=== PATIENT | male | born 1945 | race Caucasian/White ===

== ENCOUNTER 2021-04-02 17:13 | Inpatient (IN) | payer MEDICARE, OTHER ==
[~2021-04-02] VITALS: Ht 172.7 cm; Wt 71.5 kg
[2021-04-02] MEDS ORDERED: CALCIUM GLUCONATE 0.465 MEQ/ML 10 ML VIAL IVP ONE (17:30)
[2021-04-02 17:37] LABS: BASOPHILS % (AUTO) 0.8 % (0.0-2.0); HEMATOCRIT 28.4 % (41-53); HEMOGLOBIN 9.8 g/dL (13.5-17.5); LYMPHOCYTES # (AUTO) 1.5 K/uL (1.0-4.8); LYMPHOCYTES % (AUTO) 17.8 % (22.0-44.0); MEAN CORPUSCULAR HEMOGLOBIN 33.5 pg (26.0-34.0); MEAN CORPUSCULAR HGB CONC 34.4 G/dL (31.0-37.0); MEAN CORPUSCULAR VOLUME 98 fL (80-100); MONOCYTES # (AUTO) 0.6 K/uL (0.1-1.0); NEUTROPHILS # (AUTO) 5.3 K/uL (1.8-7.7); NEUTROPHILS % (AUTO) 65.4 % (40.0-70.0); PLATELET COUNT (AUTO) 274 K/uL (150-450); RED BLOOD CELL COUNT(AUTO) 2.91 MIL/uL (4.50-5.90); RED CELL DISTRIBUTION WIDTH 13.1 % (11.5-14.5)
[2021-04-02] MEDS ORDERED: AMLO-258 PO (17:42)
[2021-04-02] MEDS ORDERED: CHOL100044 PO (17:42)
[2021-04-02] MEDS ORDERED: ROSU10TA72 PO (17:42)
[2021-04-02] MEDS ORDERED: INSNOV SQ (17:42)
[2021-04-02] MEDS ORDERED: CARV6 PO (17:42)
[2021-04-02] MEDS ORDERED: ASPI81TA87 PO (17:42)
[2021-04-02] MEDS ORDERED: CLOP75TA60 PO (17:42)
[2021-04-02] MEDS ORDERED: CINA30 PO (17:42)
[2021-04-02] MEDS ORDERED: ISOS5TAB5 PO (17:42)
[2021-04-02] MEDS ORDERED: SUCR500T PO (17:42)
[2021-04-02 17:54] LABS: ABG A-A DIFF O2 475.2 mmHg (10-20.0); ABG BASE EXCESS 1.7 mmol/L (-2.0-3.0); ABG CARBOXYHEMOGLOBIN 0.3 % (0.0-1.5); ABG HCO3 25.8 mmol/L (22.0-26.0); ABG METHEMOGLOBIN 0.4 % (0.0-1.5); ABG OXYGEN CONTENT 14.3 mL/dL (15.0-23.0); ABG OXYGEN SATURATION 99.2 % (95.0-98.0); ABG OXYHEMOGLOBIN 98.5 % (94.0-100.0); ABG PCO2 45 mmHg (35-45); ABG PH 7.391 (7.35-7.450); PO2, ARTERIAL BG 193.8 mmHg (75.0-83.0); SOURCE, BLOOD GAS ARTERIAL; TEMPERATURE, FAHRENHEIT, BG 97.8 FAHREN (96.0-98.6)
[2021-04-02 17:55] LABS: O2 DEVICE,BLOOD GAS NON REBREATHER (ROOM AIR); SITE, BLOOD GAS LFT RADIAL
[2021-04-02 17:59] LABS: ALBUMIN 2.9 g/dL (3.4-5.0); BILIRUBIN,TOTAL 0.8 mg/dL (0.1-1.0); CALCIUM, TOTAL 8.2 mg/dL (8.8-10.5); CREATININE 7.95 mg/dL (0.60-1.30); POTASSIUM 4.7 mmol/L (3.5-5.1); TOTAL PROTEIN, SERUM 8.2 g/dL (6.4-8.2)
[2021-04-02 18:34] LABS: COVID AG,FIA SOURCE NASOPHARYNGEAL
[2021-04-02] MEDS ORDERED: ACETAMINOPHEN 325 MG TABLET PO PRN ×2 (19:00→19:30)
[2021-04-02] MEDS ORDERED: NITROGLYCERIN 0.4 MG SUBLINGUAL TABLET #25 SL ONE (19:00)
[2021-04-02] MEDS ORDERED: 0.9% SODIUM CHLORIDE 10 ML SYRINGE IVP PRN (19:00)
[2021-04-02] MEDS ORDERED: ONDANSETRON HCL 4 MG/2 ML VIAL IVP PRN ×2 (19:00→19:30)
[2021-04-02] MEDS ORDERED: HYDROCODONE/ACETAMINOPHEN 5-325 MG TABLET PO PRN (19:30)
[2021-04-02] MEDS ORDERED: BISACODYL 10 MG RECTAL RECTAL SUPPOSITORY PR PRN (19:30)
[2021-04-02] MEDS ORDERED: ALBUTEROL SULFATE 2.5 MG/0.5 ML NEB SOLUTION NEB PRN (19:30)
[2021-04-02] MEDS ORDERED: MAGNESIUM HYDROXIDE SUSPENSION 30 ML UDCUP PO PRN (19:30)
[2021-04-02] MEDS ORDERED: ZOLPIDEM TARTRATE 5 MG TABLET PO PRN (19:30)
[2021-04-02] MEDS ORDERED: IPRATROPIUM BROMIDE 0.5 MG/2.5 ML NEB SOLUTION NEB PRN (19:30)
[2021-04-02 19:37] LABS: INFLUENZA TYPE A NEGATIVE FOR TYPE A (NEGATIVE); INFLUENZA TYPE B NEGATIVE FOR TYPE B (NEGATIVE)
[2021-04-02 20:21] LABS: D-DIMER 3.47 mg/L FEU (0.00-0.50); INR 1.1 (0.9-1.1); PROTHROMBIN TIME 11.3 SEC (9.4-11.6)
[2021-04-02] MEDS: CARVEDILOL 6.25 MG TABLET PO SCH (21:00)
[2021-04-02] MEDS ORDERED: CARVEDILOL 6.25 MG TABLET PO SCH (21:00)
[2021-04-02] MEDS: DOCUSATE SODIUM 100 MG CAPSULE PO SCH (22:16)
[2021-04-02] MEDS ORDERED: DEXTROSE 50%-WATER 25 GM/50 ML SYRINGE IVP PRN (22:45)
[2021-04-02 23:04] LABS: ABG A-A DIFF O2 451.6 mmHg (10-20.0); ABG BASE EXCESS 2.3 mmol/L (-2.0-3.0); ABG CARBOXYHEMOGLOBIN 0.3 % (0.0-1.5); ABG HCO3 26.3 mmol/L (22.0-26.0); ABG METHEMOGLOBIN 0.4 % (0.0-1.5); ABG OXYGEN CONTENT 13.4 mL/dL (15.0-23.0); ABG OXYGEN SATURATION 99.2 % (95.0-98.0); ABG OXYHEMOGLOBIN 98.5 % (94.0-100.0); ABG PCO2 44 mmHg (35-45); ABG PH 7.406 (7.35-7.450); ABG TOTAL HEMOGLOBIN 9.3 G/dL (12.0-18.0); PO2, ARTERIAL BG 217.4 mmHg (75.0-83.0); SOURCE, BLOOD GAS ARTERIAL; TEMPERATURE, FAHRENHEIT, BG 98.6 FAHREN (96.0-98.6)
[2021-04-02 23:05] LABS: O2 DEVICE,BLOOD GAS NRB (ROOM AIR); SITE, BLOOD GAS RT RADIAL
[2021-04-02 23:11] LABS: BASOPHILS % (AUTO) 0.6 % (0.0-2.0); EOSINOPHILS % (AUTO) 3.8 % (1.0-6.0); HEMATOCRIT 24.6 % (41-53); HEMOGLOBIN 8.5 g/dL (13.5-17.5); LYMPHOCYTES # (AUTO) 0.9 K/uL (1.0-4.8); LYMPHOCYTES % (AUTO) 12.4 % (22.0-44.0); MEAN CORPUSCULAR HEMOGLOBIN 33.9 pg (26.0-34.0); MEAN CORPUSCULAR HGB CONC 34.7 G/dL (31.0-37.0); MEAN CORPUSCULAR VOLUME 98 fL (80-100); MONOCYTES # (AUTO) 0.4 K/uL (0.1-1.0); MONOCYTES % (AUTO) 6.3 % (2.0-9.0); NEUTROPHILS # (AUTO) 5.3 K/uL (1.8-7.7); NEUTROPHILS % (AUTO) 76.9 % (40.0-70.0); PLATELET COUNT (AUTO) 242 K/uL (150-450); RED BLOOD CELL COUNT(AUTO) 2.51 MIL/uL (4.50-5.90); RED CELL DISTRIBUTION WIDTH 13.3 % (11.5-14.5)
[2021-04-02 23:19] LABS: CALCIUM, TOTAL 8.1 mg/dL (8.8-10.5); CREATININE 7.98 mg/dL (0.60-1.30)
[2021-04-02 23:25] LABS: ALBUMIN 2.6 g/dL (3.4-5.0); BILIRUBIN,TOTAL 0.6 mg/dL (0.1-1.0); TOTAL PROTEIN, SERUM 7.3 g/dL (6.4-8.2)
[2021-04-03] MEDS: HEPARIN SODIUM,PORCINE 5,000 UNITS/ML VIAL SQ SCH ×3 (00:01→17:56)
[2021-04-03] MEDS: INSULIN LISPRO 100 UNITS/ML SQ PRN ×2 (00:23→20:16)
[2021-04-03 00:31] LABS: GLUCOSE,POINT OF CARE 385 MG/DL (70-110)
[2021-04-03] MEDS: MORPHINE SULFATE 2 MG/ML SYRINGE IVP PRN ×4 (02:40→20:15)
[2021-04-03 06:45] LABS: GLUCOSE,POINT OF CARE 145 MG/DL (70-110)
[2021-04-03 07:38] LABS: BASOPHILS % (AUTO) 0.6 % (0.0-2.0); EOSINOPHILS % (AUTO) 8.8 % (1.0-6.0); HEMATOCRIT 25.8 % (41-53); LYMPHOCYTES # (AUTO) 1.1 K/uL (1.0-4.8); LYMPHOCYTES % (AUTO) 12.6 % (22.0-44.0); MEAN CORPUSCULAR HEMOGLOBIN 33.6 pg (26.0-34.0); MEAN CORPUSCULAR HGB CONC 34.8 G/dL (31.0-37.0); MEAN CORPUSCULAR VOLUME 97 fL (80-100); MONOCYTES # (AUTO) 0.6 K/uL (0.1-1.0); MONOCYTES % (AUTO) 6.7 % (2.0-9.0); NEUTROPHILS # (AUTO) 6.1 K/uL (1.8-7.7); NEUTROPHILS % (AUTO) 71.3 % (40.0-70.0); PLATELET COUNT (AUTO) 253 K/uL (150-450); RED BLOOD CELL COUNT(AUTO) 2.67 MIL/uL (4.50-5.90)
[2021-04-03] MEDS: DOCUSATE SODIUM 100 MG CAPSULE PO SCH ×2 (08:31→20:14)
[2021-04-03] MEDS: CLOPIDOGREL BISULFATE 75 MG TABLET PO SCH (08:32)
[2021-04-03] MEDS: CHOLECALCIFEROL (VIT D3) 1,000 UNITS [25 MCG] TABLET PO SCH (08:32)
[2021-04-03] MEDS: ASPIRIN 81 MG DR TABLET PO SCH (08:32)
[2021-04-03] MEDS ORDERED: ISOSORBIDE DINITRATE 5 MG TABLET PO SCH (09:00)
[2021-04-03] MEDS ORDERED: CINACALCET HCL 30 MG TABLET PO SCH (09:00)
[2021-04-03 09:07] LABS: ALBUMIN 2.7 g/dL (3.4-5.0); BILIRUBIN,TOTAL 0.7 mg/dL (0.1-1.0); CALCIUM, TOTAL 8.4 mg/dL (8.8-10.5); CREATININE 8.35 mg/dL (0.60-1.30); POTASSIUM 4.7 mmol/L (3.5-5.1); TOTAL PROTEIN, SERUM 7.6 g/dL (6.4-8.2)
[2021-04-03] MEDS ORDERED: MORPHINE SULFATE 2 MG/ML SYRINGE IVP STA (11:01)
[2021-04-03] MEDS ORDERED: NITR0.4T50 SL (11:10)
[2021-04-03] MEDS ORDERED: LORA10TA7 PO (11:10)
[2021-04-03] MEDS ORDERED: INSU100V12 SQ (11:10)
[2021-04-03] MEDS ORDERED: ISOS10TA16 PO (11:10)
[2021-04-03] MEDS ORDERED: ROSU20TA73 PO (11:10)
[2021-04-03] MEDS ORDERED: FINA5TAB41 PO (11:10)
[2021-04-03] MEDS ORDERED: DIPH-1080 PO (11:10)
[2021-04-03] MEDS ORDERED: PLEC3TAB2 PO (11:14)
[2021-04-03] MEDS ORDERED: FURO20TA4 PO (11:14)
[2021-04-03] MEDS ORDERED: TAMS-13 PO (11:14)
[2021-04-03] MEDS ORDERED: ALBUMIN HUMAN 25%-25GM/100ML 100 ML IV PRN (11:15)
[2021-04-03 14:58] LABS: GLUCOSE,POINT OF CARE 140 MG/DL (70-110)
[2021-04-03 16:19] VITALS: BP 133/63
[2021-04-03 16:20] VITALS: BP 133/63
[2021-04-03 16:21] VITALS: BP 133/63
[2021-04-03] MEDS ORDERED: SODIUM CHLORIDE 0.9% 250 ML IV ONE (17:45)
[2021-04-03] MEDS: ISOSORBIDE DINITRATE 10 MG TABLET PO SCH (17:53)
[2021-04-03] MEDS: VITAMIN B COMP/VIT C/FOLIC ACID CAPSULE PO SCH (17:54)
[2021-04-03] MEDS: ROSUVASTATIN CALCIUM 10 MG TABLET PO SCH (17:55)
[2021-04-03] MEDS: AmLODIPine BESYLATE 10 MG TABLET PO SCH (17:55)
[2021-04-03] MEDS: MethylPREDNISolone SOD SUCC 125 MG/2 ML VIAL IVP SCH ×2 (17:56→18:06)
[2021-04-03] MEDS: CefTRIAXone 1 GM/DEXTROSE 50 ML IV SCH (17:56)
[2021-04-03 20:00] VITALS: BP 136/66
[2021-04-03] MEDS: CARVEDILOL 6.25 MG TABLET PO SCH (21:00)
[2021-04-04] VITALS (7 sets, daily range): BP systolic 115–164; BP diastolic 46–69
[2021-04-04] MEDS: HEPARIN SODIUM,PORCINE 5,000 UNITS/ML VIAL SQ SCH ×3 (01:14→17:02)
[2021-04-04] MEDS: MethylPREDNISolone SOD SUCC 125 MG/2 ML VIAL IVP SCH ×4 (01:14→17:57)
[2021-04-04] MEDS: INSULIN LISPRO 100 UNITS/ML SQ PRN ×4 (05:37→21:30)
[2021-04-04] MEDS ORDERED: ALBUTEROL SULFATE/IPRATROPIUM 100-20 MCG/SPRAY 4 GM INHALER IH PRN (05:45)
[2021-04-04 06:38] LABS: BASOPHILS % (AUTO) 0.1 % (0.0-2.0); EOSINOPHILS % (AUTO) 0 % (1.0-6.0); HEMATOCRIT 27.8 % (41-53); HEMOGLOBIN 9.4 g/dL (13.5-17.5); LYMPHOCYTES # (AUTO) 0.4 K/uL (1.0-4.8); MEAN CORPUSCULAR HEMOGLOBIN 33.3 pg (26.0-34.0); MEAN CORPUSCULAR HGB CONC 33.9 G/dL (31.0-37.0); MEAN CORPUSCULAR VOLUME 98 fL (80-100); MONOCYTES # (AUTO) 0.1 K/uL (0.1-1.0); NEUTROPHILS # (AUTO) 8.2 K/uL (1.8-7.7); PLATELET COUNT (AUTO) 270 K/uL (150-450); RED BLOOD CELL COUNT(AUTO) 2.83 MIL/uL (4.50-5.90); RED CELL DISTRIBUTION WIDTH 13.4 % (11.5-14.5)
[2021-04-04 06:45] LABS: NEUTROPHILS % (AUTO) 93.9 % (40.0-70.0)
[2021-04-04 06:52] LABS: ALBUMIN 2.7 g/dL (3.4-5.0); BILIRUBIN,TOTAL 0.7 mg/dL (0.1-1.0); CREATININE 5.21 mg/dL (0.60-1.30); PHOSPHORUS 6.4 mg/dL (2.5-4.9); TOTAL PROTEIN, SERUM 7.9 g/dL (6.4-8.2)
[2021-04-04] MEDS: ASPIRIN 81 MG DR TABLET PO SCH (08:31)
[2021-04-04] MEDS: VITAMIN B COMP/VIT C/FOLIC ACID CAPSULE PO SCH (08:31)
[2021-04-04] MEDS: AmLODIPine BESYLATE 10 MG TABLET PO SCH (08:31)
[2021-04-04] MEDS: CHOLECALCIFEROL (VIT D3) 1,000 UNITS [25 MCG] TABLET PO SCH (08:32)
[2021-04-04] MEDS: ISOSORBIDE DINITRATE 10 MG TABLET PO SCH (08:33)
[2021-04-04] MEDS: DOCUSATE SODIUM 100 MG CAPSULE PO SCH ×2 (08:34→20:21)
[2021-04-04] MEDS: ROSUVASTATIN CALCIUM 10 MG TABLET PO SCH (08:34)
[2021-04-04] MEDS ORDERED: ISOSORBIDE DINITRATE 10 MG TABLET PO SCH (09:00)
[2021-04-04] MEDS: DOXYCYCLINE HYCLATE 100 MG TABLET PO SCH ×2 (10:30→20:21)
[2021-04-04] MEDS: CINACALCET HCL 30 MG TABLET PO SCH (10:32)
[2021-04-04] MEDS: CLOPIDOGREL BISULFATE 75 MG TABLET PO SCH (10:32)
[2021-04-04] MEDS: CefTRIAXone 1 GM/DEXTROSE 50 ML IV SCH (12:00)
[2021-04-04] MEDS: EPOETIN ALFA 10,000 UNITS/ML 2 ML VIAL SQ SCH (12:00)
[2021-04-04] MEDS ORDERED: SODIUM CHLORIDE 0.9% 2,000 ML ONE (13:57)
[2021-04-04 17:17] LABS: GLUCOMETER DEV NAME(LOC) 5S.2B; GLUCOSE,POINT OF CARE 285 MG/DL (70-110)
[2021-04-04 17:17] LABS: GLUCOMETER DEV NAME(LOC) 5S.2B; GLUCOSE,POINT OF CARE 174 MG/DL (70-110)
[2021-04-04 17:17] LABS: GLUCOMETER DEV NAME(LOC) 5S.2B; GLUCOSE,POINT OF CARE 307 MG/DL (70-110)
[2021-04-04] MEDS: CARVEDILOL 6.25 MG TABLET PO SCH (20:21)
[2021-04-04 20:47] LABS: GLUCOMETER DEV NAME(LOC) 5N.3; GLUCOSE,POINT OF CARE 141 MG/DL (70-110)
[2021-04-04 20:47] LABS: GLUCOMETER DEV NAME(LOC) 5N.3; GLUCOSE,POINT OF CARE 333 MG/DL (70-110)
[2021-04-04 20:47] LABS: GLUCOMETER DEV NAME(LOC) 5N.3; GLUCOSE,POINT OF CARE 279 MG/DL (70-110)
[2021-04-05] MEDS: HEPARIN SODIUM,PORCINE 5,000 UNITS/ML VIAL SQ SCH ×4 (00:15→23:41)
[2021-04-05] MEDS: MethylPREDNISolone SOD SUCC 125 MG/2 ML VIAL IVP SCH ×5 (00:15→23:41)
[2021-04-05 04:56] VITALS: BP 116/63
[2021-04-05 05:26] LABS: GLUCOMETER DEV NAME(LOC) 5N.3; GLUCOSE,POINT OF CARE 282 MG/DL (70-110)
[2021-04-05 06:04] LABS: EOSINOPHILS % (AUTO) 0 % (1.0-6.0); HEMATOCRIT 27.7 % (41-53); HEMOGLOBIN 9.2 g/dL (13.5-17.5); LYMPHOCYTES # (AUTO) 0.7 K/uL (1.0-4.8); LYMPHOCYTES % (AUTO) 4.6 % (22.0-44.0); MEAN CORPUSCULAR HEMOGLOBIN 32.5 pg (26.0-34.0); MEAN CORPUSCULAR HGB CONC 33.1 G/dL (31.0-37.0); MEAN CORPUSCULAR VOLUME 98 fL (80-100); MONOCYTES # (AUTO) 0.4 K/uL (0.1-1.0); MONOCYTES % (AUTO) 2.6 % (2.0-9.0); NEUTROPHILS # (AUTO) 14.2 K/uL (1.8-7.7); PLATELET COUNT (AUTO) 326 K/uL (150-450); RED BLOOD CELL COUNT(AUTO) 2.83 MIL/uL (4.50-5.90); RED CELL DISTRIBUTION WIDTH 13.4 % (11.5-14.5)
[2021-04-05] MEDS: INSULIN LISPRO 100 UNITS/ML SQ PRN ×3 (06:10→21:32)
[2021-04-05 06:23] LABS: ALBUMIN 2.6 g/dL (3.4-5.0); BILIRUBIN,TOTAL 0.6 mg/dL (0.1-1.0); CALCIUM, TOTAL 9.6 mg/dL (8.8-10.5); CREATININE 3.72 mg/dL (0.60-1.30); POTASSIUM 4.3 mmol/L (3.5-5.1); TOTAL PROTEIN, SERUM 7.7 g/dL (6.4-8.2)
[2021-04-05 06:57] LABS: NEUTROPHILS % (AUTO) 92.8 % (40.0-70.0)
[2021-04-05 07:39] VITALS: BP 135/52
[2021-04-05] MEDS: CLOPIDOGREL BISULFATE 75 MG TABLET PO SCH (09:00)
[2021-04-05] MEDS: DOCUSATE SODIUM 100 MG CAPSULE PO SCH ×2 (09:00→19:35)
[2021-04-05] MEDS: ROSUVASTATIN CALCIUM 10 MG TABLET PO SCH (09:01)
[2021-04-05] MEDS: VITAMIN B COMP/VIT C/FOLIC ACID CAPSULE PO SCH (09:01)
[2021-04-05] MEDS: CHOLECALCIFEROL (VIT D3) 1,000 UNITS [25 MCG] TABLET PO SCH (09:01)
[2021-04-05] MEDS: ASPIRIN 81 MG DR TABLET PO SCH (09:02)
[2021-04-05] MEDS: DOXYCYCLINE HYCLATE 100 MG TABLET PO SCH ×2 (09:02→19:35)
[2021-04-05] MEDS: AmLODIPine BESYLATE 10 MG TABLET PO SCH (09:02)
[2021-04-05] MEDS: ISOSORBIDE DINITRATE 10 MG TABLET PO SCH (09:03)
[2021-04-05] MEDS: CINACALCET HCL 30 MG TABLET PO SCH (09:04)
[2021-04-05 11:44] VITALS: BP 140/58
[2021-04-05] MEDS: CefTRIAXone 1 GM/DEXTROSE 50 ML IV SCH (12:31)
[2021-04-05] MEDS ORDERED: INSULIN LISPRO 100 UNITS/ML SQ ONE (13:30)
[2021-04-05 15:22] VITALS: BP 163/87
[2021-04-05] MEDS: CARVEDILOL 6.25 MG TABLET PO SCH (19:35)
[2021-04-05 19:38] VITALS: BP 123/68
[2021-04-05 21:50] LABS: GLUCOMETER DEV NAME(LOC) 5N.3; GLUCOSE,POINT OF CARE 402 MG/DL (70-110)
[2021-04-05 21:50] LABS: GLUCOMETER DEV NAME(LOC) 5N.3; GLUCOSE,POINT OF CARE 225 MG/DL (70-110)
[2021-04-06 00:23] VITALS: BP 145/75
[2021-04-06 05:11] LABS: GLUCOMETER DEV NAME(LOC) 5S.2B; GLUCOSE,POINT OF CARE 375 MG/DL (70-110)
[2021-04-06 05:20] VITALS: BP 140/63
[2021-04-06 05:28] LABS: GLUCOMETER DEV NAME(LOC) 5N.3; GLUCOSE,POINT OF CARE 365 MG/DL (70-110)
[2021-04-06] MEDS: MethylPREDNISolone SOD SUCC 125 MG/2 ML VIAL IVP SCH ×3 (05:30→17:32)
[2021-04-06] MEDS: INSULIN LISPRO 100 UNITS/ML SQ PRN ×4 (05:37→20:00)
[2021-04-06 05:46] LABS: BASOPHILS % (AUTO) 0.1 % (0.0-2.0); EOSINOPHILS % (AUTO) 0 % (1.0-6.0); HEMOGLOBIN 9.8 g/dL (13.5-17.5); LYMPHOCYTES # (AUTO) 0.5 K/uL (1.0-4.8); LYMPHOCYTES % (AUTO) 4.1 % (22.0-44.0); MEAN CORPUSCULAR HEMOGLOBIN 32.7 pg (26.0-34.0); MEAN CORPUSCULAR HGB CONC 33.7 G/dL (31.0-37.0); MEAN CORPUSCULAR VOLUME 97 fL (80-100); MONOCYTES # (AUTO) 0.2 K/uL (0.1-1.0); MONOCYTES % (AUTO) 1.6 % (2.0-9.0); PLATELET COUNT (AUTO) 319 K/uL (150-450); RED BLOOD CELL COUNT(AUTO) 2.98 MIL/uL (4.50-5.90); RED CELL DISTRIBUTION WIDTH 13.6 % (11.5-14.5)
[2021-04-06 06:09] LABS: ALBUMIN 2.8 g/dL (3.4-5.0); BILIRUBIN,TOTAL 0.5 mg/dL (0.1-1.0); CALCIUM, TOTAL 9.1 mg/dL (8.8-10.5); CREATININE 5.58 mg/dL (0.60-1.30); POTASSIUM 4.6 mmol/L (3.5-5.1); TOTAL PROTEIN, SERUM 7.7 g/dL (6.4-8.2)
[2021-04-06 06:23] LABS: NEUTROPHILS % (AUTO) 94.2 % (40.0-70.0)
[2021-04-06 07:30] VITALS: BP 159/69
[2021-04-06] MEDS: CHOLECALCIFEROL (VIT D3) 1,000 UNITS [25 MCG] TABLET PO SCH (08:10)
[2021-04-06] MEDS: DOXYCYCLINE HYCLATE 100 MG TABLET PO SCH ×2 (08:10→20:03)
[2021-04-06] MEDS: CLOPIDOGREL BISULFATE 75 MG TABLET PO SCH (08:11)
[2021-04-06] MEDS: DOCUSATE SODIUM 100 MG CAPSULE PO SCH ×2 (08:11→20:02)
[2021-04-06] MEDS: ASPIRIN 81 MG DR TABLET PO SCH (08:11)
[2021-04-06] MEDS: ROSUVASTATIN CALCIUM 10 MG TABLET PO SCH (08:11)
[2021-04-06] MEDS: ISOSORBIDE DINITRATE 10 MG TABLET PO SCH (08:11)
[2021-04-06] MEDS: VITAMIN B COMP/VIT C/FOLIC ACID CAPSULE PO SCH (08:11)
[2021-04-06] MEDS: CINACALCET HCL 30 MG TABLET PO SCH (08:11)
[2021-04-06] MEDS: EPOETIN ALFA 10,000 UNITS/ML 2 ML VIAL SQ SCH (08:12)
[2021-04-06] MEDS: HEPARIN SODIUM,PORCINE 5,000 UNITS/ML VIAL SQ SCH ×2 (08:12→15:50)
[2021-04-06] MEDS: AmLODIPine BESYLATE 10 MG TABLET PO SCH (09:00)
[2021-04-06] MEDS: MORPHINE SULFATE 2 MG/ML SYRINGE IVP PRN ×2 (11:41→21:01)
[2021-04-06 11:47] VITALS: BP 147/73
[2021-04-06] MEDS: CefTRIAXone 1 GM/DEXTROSE 50 ML IV SCH (13:47)
[2021-04-06 15:25] VITALS: BP 140/50
[2021-04-06 20:00] VITALS: BP 142/77
[2021-04-06] MEDS: CARVEDILOL 6.25 MG TABLET PO SCH (20:02)
[2021-04-07 00:08] VITALS: BP 132/84
[2021-04-07] MEDS: MethylPREDNISolone SOD SUCC 125 MG/2 ML VIAL IVP SCH ×4 (00:23→17:39)
[2021-04-07] MEDS: HEPARIN SODIUM,PORCINE 5,000 UNITS/ML VIAL SQ SCH ×3 (00:24→17:04)
[2021-04-07 03:51] LABS: GLUCOMETER DEV NAME(LOC) 5S.2B; GLUCOSE,POINT OF CARE 159 MG/DL (70-110)
[2021-04-07 03:51] LABS: GLUCOMETER DEV NAME(LOC) 5S.2B; GLUCOSE,POINT OF CARE 376 MG/DL (70-110)
[2021-04-07 03:52] LABS: GLUCOMETER DEV NAME(LOC) 5S.2B; GLUCOSE,POINT OF CARE 374 MG/DL (70-110)
[2021-04-07 05:52] VITALS: BP 141/66
[2021-04-07] MEDS: INSULIN LISPRO 100 UNITS/ML SQ PRN ×4 (06:28→20:50)
[2021-04-07 07:44] LABS: BASOPHILS % (AUTO) 0.1 % (0.0-2.0); EOSINOPHILS % (AUTO) 0 % (1.0-6.0); HEMOGLOBIN 9.8 g/dL (13.5-17.5); LYMPHOCYTES # (AUTO) 0.7 K/uL (1.0-4.8); LYMPHOCYTES % (AUTO) 6.5 % (22.0-44.0); MEAN CORPUSCULAR HEMOGLOBIN 33.5 pg (26.0-34.0); MEAN CORPUSCULAR HGB CONC 33.7 G/dL (31.0-37.0); MEAN CORPUSCULAR VOLUME 99 fL (80-100); MONOCYTES # (AUTO) 0.3 K/uL (0.1-1.0); MONOCYTES % (AUTO) 2.5 % (2.0-9.0); NEUTROPHILS # (AUTO) 9.5 K/uL (1.8-7.7); PLATELET COUNT (AUTO) 336 K/uL (150-450); RED BLOOD CELL COUNT(AUTO) 2.93 MIL/uL (4.50-5.90); RED CELL DISTRIBUTION WIDTH 13.4 % (11.5-14.5)
[2021-04-07 07:46] LABS: NEUTROPHILS % (AUTO) 90.9 % (40.0-70.0)
[2021-04-07 07:47] LABS: GLUCOMETER DEV NAME(LOC) 5S.2B; GLUCOSE,POINT OF CARE 342 MG/DL (70-110)
[2021-04-07 08:05] LABS: ALBUMIN 2.6 g/dL (3.4-5.0); BILIRUBIN,TOTAL 0.5 mg/dL (0.1-1.0); CALCIUM, TOTAL 8.6 mg/dL (8.8-10.5); CREATININE 4.03 mg/dL (0.60-1.30); POTASSIUM 4.7 mmol/L (3.5-5.1)
[2021-04-07 08:19] VITALS: BP 132/68
[2021-04-07] MEDS: CINACALCET HCL 30 MG TABLET PO SCH (08:53)
[2021-04-07] MEDS: ISOSORBIDE DINITRATE 10 MG TABLET PO SCH (08:54)
[2021-04-07] MEDS: AmLODIPine BESYLATE 10 MG TABLET PO SCH (08:54)
[2021-04-07] MEDS: DOXYCYCLINE HYCLATE 100 MG TABLET PO SCH ×2 (08:54→20:32)
[2021-04-07] MEDS: CHOLECALCIFEROL (VIT D3) 1,000 UNITS [25 MCG] TABLET PO SCH (08:54)
[2021-04-07] MEDS: VITAMIN B COMP/VIT C/FOLIC ACID CAPSULE PO SCH (08:54)
[2021-04-07] MEDS: CLOPIDOGREL BISULFATE 75 MG TABLET PO SCH (08:54)
[2021-04-07] MEDS: ROSUVASTATIN CALCIUM 10 MG TABLET PO SCH (08:54)
[2021-04-07] MEDS: ASPIRIN 81 MG DR TABLET PO SCH (08:55)
[2021-04-07] MEDS: DOCUSATE SODIUM 100 MG CAPSULE PO SCH ×2 (08:55→20:31)
[2021-04-07 11:31] VITALS: BP 144/64
[2021-04-07] MEDS: CefTRIAXone 1 GM/DEXTROSE 50 ML IV SCH (12:44)
[2021-04-07 15:54] LABS: GLUCOMETER DEV NAME(LOC) 5S.2B; GLUCOSE,POINT OF CARE 358 MG/DL (70-110)
[2021-04-07] MEDS ORDERED: INSULIN LISPRO 100 UNITS/ML SQ ONE ×3 (17:30→22:15)
[2021-04-07 19:53] LABS: GLUCOMETER DEV NAME(LOC) 5S.2B; GLUCOSE,POINT OF CARE 448 MG/DL (70-110)
[2021-04-07 20:02] VITALS: BP 148/71
[2021-04-07] MEDS: CARVEDILOL 6.25 MG TABLET PO SCH (20:32)
[2021-04-07] MEDS: INSULIN GLARGINE,HUM.REC.ANLOG 100 UNITS/ML SQ SCH (20:49)
[2021-04-07] MEDS ORDERED: INSULIN GLARGINE,HUM.REC.ANLOG 100 UNITS/ML SQ SCH (21:00)
[2021-04-08] VITALS (7 sets, daily range): BP systolic 113–140; BP diastolic 53–71
[2021-04-08] MEDS: HEPARIN SODIUM,PORCINE 5,000 UNITS/ML VIAL SQ SCH ×3 (00:50→20:50)
[2021-04-08] MEDS: MethylPREDNISolone SOD SUCC 125 MG/2 ML VIAL IVP SCH ×2 (00:50→06:03)
[2021-04-08 03:59] LABS: GLUCOMETER DEV NAME(LOC) 5S.2B; GLUCOSE,POINT OF CARE 416 MG/DL (70-110)
[2021-04-08 03:59] LABS: GLUCOMETER DEV NAME(LOC) 5S.2B; GLUCOSE,POINT OF CARE 366 MG/DL (70-110)
[2021-04-08] MEDS: INSULIN LISPRO 100 UNITS/ML SQ PRN ×4 (06:06→20:52)
[2021-04-08 08:05] LABS: EOSINOPHILS % (AUTO) 0 % (1.0-6.0); HEMATOCRIT 28.6 % (41-53); HEMOGLOBIN 9.9 g/dL (13.5-17.5); LYMPHOCYTES # (AUTO) 0.7 K/uL (1.0-4.8); LYMPHOCYTES % (AUTO) 5.7 % (22.0-44.0); MEAN CORPUSCULAR HEMOGLOBIN 33.4 pg (26.0-34.0); MEAN CORPUSCULAR HGB CONC 34.5 G/dL (31.0-37.0); MEAN CORPUSCULAR VOLUME 97 fL (80-100); MONOCYTES # (AUTO) 0.3 K/uL (0.1-1.0); MONOCYTES % (AUTO) 2.2 % (2.0-9.0); NEUTROPHILS # (AUTO) 11.3 K/uL (1.8-7.7); PLATELET COUNT (AUTO) 353 K/uL (150-450); RED BLOOD CELL COUNT(AUTO) 2.96 MIL/uL (4.50-5.90); RED CELL DISTRIBUTION WIDTH 13.4 % (11.5-14.5)
[2021-04-08 08:11] LABS: ALBUMIN 2.6 g/dL (3.4-5.0); BILIRUBIN,TOTAL 0.4 mg/dL (0.1-1.0); CALCIUM, TOTAL 8.4 mg/dL (8.8-10.5); CREATININE 6.01 mg/dL (0.60-1.30); POTASSIUM 4.8 mmol/L (3.5-5.1); TOTAL PROTEIN, SERUM 6.9 g/dL (6.4-8.2)
[2021-04-08 08:27] LABS: NEUTROPHILS % (AUTO) 92.1 % (40.0-70.0)
[2021-04-08] MEDS: CINACALCET HCL 30 MG TABLET PO SCH (08:32)
[2021-04-08] MEDS: VITAMIN B COMP/VIT C/FOLIC ACID CAPSULE PO SCH (08:32)
[2021-04-08] MEDS: DOCUSATE SODIUM 100 MG CAPSULE PO SCH ×2 (08:32→20:50)
[2021-04-08] MEDS: CHOLECALCIFEROL (VIT D3) 1,000 UNITS [25 MCG] TABLET PO SCH (08:32)
[2021-04-08] MEDS: CLOPIDOGREL BISULFATE 75 MG TABLET PO SCH (08:32)
[2021-04-08] MEDS: ASPIRIN 81 MG DR TABLET PO SCH (08:33)
[2021-04-08] MEDS: DOXYCYCLINE HYCLATE 100 MG TABLET PO SCH ×2 (08:33→20:50)
[2021-04-08] MEDS: ROSUVASTATIN CALCIUM 10 MG TABLET PO SCH (08:33)
[2021-04-08] MEDS ORDERED: MORPHINE SULFATE 2 MG/ML SYRINGE IVP PRN (09:45)
[2021-04-08] MEDS ORDERED: SODIUM CHLORIDE 0.9% 2,000 ML ONE (11:00)
[2021-04-08] MEDS: CefTRIAXone 1 GM/DEXTROSE 50 ML IV SCH (15:48)
[2021-04-08] MEDS: EPOETIN ALFA 10,000 UNITS/ML 2 ML VIAL SQ SCH (15:49)
[2021-04-08] MEDS: PredniSONE 10 MG TABLET PO SCH (15:50)
[2021-04-08] MEDS: ISOSORBIDE DINITRATE 10 MG TABLET PO SCH (15:50)
[2021-04-08] MEDS: AmLODIPine BESYLATE 10 MG TABLET PO SCH (15:51)
[2021-04-08 20:21] LABS: GLUCOMETER DEV NAME(LOC) 5S.2B; GLUCOSE,POINT OF CARE 271 MG/DL (70-110)
[2021-04-08 20:21] LABS: GLUCOMETER DEV NAME(LOC) 5S.2B; GLUCOSE,POINT OF CARE 257 MG/DL (70-110)
[2021-04-08 20:21] LABS: GLUCOMETER DEV NAME(LOC) 5S.2B; GLUCOSE,POINT OF CARE 229 MG/DL (70-110)
[2021-04-08] MEDS: CARVEDILOL 6.25 MG TABLET PO SCH (20:50)
[2021-04-08] MEDS: INSULIN GLARGINE,HUM.REC.ANLOG 100 UNITS/ML SQ SCH (20:53)
[2021-04-09 04:19] VITALS: BP 136/95
[2021-04-09] MEDS: INSULIN LISPRO 100 UNITS/ML SQ PRN ×3 (06:16→21:16)
[2021-04-09 06:59] LABS: EOSINOPHILS % (AUTO) 0.1 % (1.0-6.0); HEMATOCRIT 29.6 % (41-53); LYMPHOCYTES # (AUTO) 1.3 K/uL (1.0-4.8); LYMPHOCYTES % (AUTO) 9.9 % (22.0-44.0); MEAN CORPUSCULAR HEMOGLOBIN 33.1 pg (26.0-34.0); MEAN CORPUSCULAR VOLUME 97 fL (80-100); MONOCYTES % (AUTO) 7.5 % (2.0-9.0); NEUTROPHILS % (AUTO) 82.5 % (40.0-70.0); PLATELET COUNT (AUTO) 313 K/uL (150-450); RED BLOOD CELL COUNT(AUTO) 3.03 MIL/uL (4.50-5.90); RED CELL DISTRIBUTION WIDTH 13.5 % (11.5-14.5)
[2021-04-09 07:21] VITALS: BP 115/69
[2021-04-09 07:22] LABS: ALBUMIN 2.5 g/dL (3.4-5.0); BILIRUBIN,TOTAL 0.4 mg/dL (0.1-1.0); CALCIUM, TOTAL 8.3 mg/dL (8.8-10.5); CREATININE 4.22 mg/dL (0.60-1.30); POTASSIUM 4.4 mmol/L (3.5-5.1); TOTAL PROTEIN, SERUM 6.4 g/dL (6.4-8.2)
[2021-04-09] MEDS: DOXYCYCLINE HYCLATE 100 MG TABLET PO SCH ×2 (08:17→21:13)
[2021-04-09] MEDS: DOCUSATE SODIUM 100 MG CAPSULE PO SCH ×2 (08:17→21:13)
[2021-04-09] MEDS: PredniSONE 10 MG TABLET PO SCH (08:17)
[2021-04-09] MEDS: CINACALCET HCL 30 MG TABLET PO SCH (08:17)
[2021-04-09] MEDS: VITAMIN B COMP/VIT C/FOLIC ACID CAPSULE PO SCH (08:17)
[2021-04-09] MEDS: AmLODIPine BESYLATE 10 MG TABLET PO SCH (08:17)
[2021-04-09] MEDS: ASPIRIN 81 MG DR TABLET PO SCH (08:17)
[2021-04-09] MEDS: ROSUVASTATIN CALCIUM 10 MG TABLET PO SCH (08:20)
[2021-04-09] MEDS: HEPARIN SODIUM,PORCINE 5,000 UNITS/ML VIAL SQ SCH ×2 (08:31→21:13)
[2021-04-09] MEDS: ISOSORBIDE DINITRATE 10 MG TABLET PO SCH (08:31)
[2021-04-09] MEDS: CHOLECALCIFEROL (VIT D3) 1,000 UNITS [25 MCG] TABLET PO SCH (08:31)
[2021-04-09] MEDS: CLOPIDOGREL BISULFATE 75 MG TABLET PO SCH (08:31)
[2021-04-09 11:10] VITALS: BP 123/52
[2021-04-09] MEDS: CefTRIAXone 1 GM/DEXTROSE 50 ML IV SCH (12:16)
[2021-04-09 15:39] VITALS: BP 127/57
[2021-04-09] MEDS ORDERED: INSULIN LISPRO 100 UNITS/ML SQ ONE (18:30)
[2021-04-09 19:49] VITALS: BP 137/67
[2021-04-09] MEDS: CARVEDILOL 6.25 MG TABLET PO SCH (21:13)
[2021-04-09] MEDS: INSULIN GLARGINE,HUM.REC.ANLOG 100 UNITS/ML SQ SCH (21:17)
[2021-04-10 00:32] VITALS: BP 133/57
[2021-04-10 04:23] VITALS: BP 139/60
[2021-04-10] MEDS: INSULIN LISPRO 100 UNITS/ML SQ PRN ×2 (06:10→17:44)
[2021-04-10 07:45] VITALS: BP 129/54
[2021-04-10] MEDS: ASPIRIN 81 MG DR TABLET PO SCH (08:02)
[2021-04-10] MEDS: CINACALCET HCL 30 MG TABLET PO SCH (08:02)
[2021-04-10] MEDS: DOCUSATE SODIUM 100 MG CAPSULE PO SCH (08:02)
[2021-04-10] MEDS: VITAMIN B COMP/VIT C/FOLIC ACID CAPSULE PO SCH (08:02)
[2021-04-10] MEDS: ROSUVASTATIN CALCIUM 10 MG TABLET PO SCH (08:02)
[2021-04-10] MEDS: ISOSORBIDE DINITRATE 10 MG TABLET PO SCH (08:03)
[2021-04-10] MEDS: DOXYCYCLINE HYCLATE 100 MG TABLET PO SCH (08:03)
[2021-04-10] MEDS: AmLODIPine BESYLATE 10 MG TABLET PO SCH (08:03)
[2021-04-10] MEDS: HEPARIN SODIUM,PORCINE 5,000 UNITS/ML VIAL SQ SCH (08:04)
[2021-04-10] MEDS: CHOLECALCIFEROL (VIT D3) 1,000 UNITS [25 MCG] TABLET PO SCH (08:04)
[2021-04-10] MEDS: CLOPIDOGREL BISULFATE 75 MG TABLET PO SCH (08:36)
[2021-04-10] MEDS: INSULIN GLARGINE,HUM.REC.ANLOG 100 UNITS/ML SQ SCH (08:39)
[2021-04-10] MEDS ORDERED: PredniSONE 10 MG TABLET PO SCH (09:00)
[2021-04-10 11:15] VITALS: BP 127/52
[2021-04-10 11:36] LABS: GLUCOMETER DEV NAME(LOC) 5S.1; GLUCOSE,POINT OF CARE 353 MG/DL (70-110)
[2021-04-10 11:36] LABS: GLUCOMETER DEV NAME(LOC) 5S.1; GLUCOSE,POINT OF CARE 210 MG/DL (70-110)
[2021-04-10 11:36] LABS: GLUCOMETER DEV NAME(LOC) 5S.1; GLUCOSE,POINT OF CARE 225 MG/DL (70-110)
[2021-04-10 11:37] LABS: GLUCOMETER DEV NAME(LOC) 5S.1; GLUCOSE,POINT OF CARE 153 MG/DL (70-110)
[2021-04-10] MEDS: CefTRIAXone 1 GM/DEXTROSE 50 ML IV SCH (13:46)
[2021-04-10 16:15] VITALS: BP 125/55
[2021-04-10 18:12] LABS: GLUCOMETER DEV NAME(LOC) 5N.3; GLUCOSE,POINT OF CARE 258 MG/DL (70-110)
[2021-04-10 18:12] LABS: GLUCOMETER DEV NAME(LOC) 5N.3; GLUCOSE,POINT OF CARE 458 MG/DL (70-110)
[2021-04-10 18:12] LABS: GLUCOMETER DEV NAME(LOC) 5N.3; GLUCOSE,POINT OF CARE 274 MG/DL (70-110)
[2021-04-10 18:12] LABS: GLUCOMETER DEV NAME(LOC) 5N.3; GLUCOSE,POINT OF CARE 439 MG/DL (70-110)
== END 2021-04-10 18:45 | DRG 189 ==
LOC: EMS 17:14 → ICUN 04-03 09:22 → 5N 04-03 13:55
PROVIDERS: ADMIT Hospitalist; ATTEND Hospitalist
PROC: 5A09357 Assistance with Respiratory Ventilation, Less than 24 Consecutive Hours, Continuous Positive Airway Pressure (ICD-10-PCS; principal; 2021-04-03)
PROC: 5A1D70Z Performance of Urinary Filtration, Intermittent, Less than 6 Hours Per Day (ICD-10-PCS; 2021-04-03)
PROC: 5A1D70Z Performance of Urinary Filtration, Intermittent, Less than 6 Hours Per Day (ICD-10-PCS; 2021-04-04)
PROC: 5A1D70Z Performance of Urinary Filtration, Intermittent, Less than 6 Hours Per Day (ICD-10-PCS; 2021-04-06)
PROC: 5A1D70Z Performance of Urinary Filtration, Intermittent, Less than 6 Hours Per Day (ICD-10-PCS; 2021-04-08)
DX: J96.21 Acute and chronic respiratory failure with hypoxia (principal); J18.9 Pneumonia, unspecified organism; N18.6 End stage renal disease; I13.11 Hypertensive heart and chronic kidney disease without heart failure, with stage 5 chronic kidney disease, or end stage renal disease; E87.1 Hypo-osmolality and hyponatremia; E44.0 Moderate protein-calorie malnutrition; Z66 Do not resuscitate; J84.112 Idiopathic pulmonary fibrosis; I25.10 Atherosclerotic heart disease of native coronary artery without angina pectoris; E11.22 Type 2 diabetes mellitus with diabetic chronic kidney disease; E11.65 Type 2 diabetes mellitus with hyperglycemia; E78.5 Hyperlipidemia, unspecified; Z20.822 Contact with and (suspected) exposure to COVID-19; I25.2 Old myocardial infarction; Z99.2 Dependence on renal dialysis; E11.319 Type 2 diabetes mellitus with unspecified diabetic retinopathy without macular edema; Z79.4 Long term (current) use of insulin; Z99.81 Dependence on supplemental oxygen; Z68.24 Body mass index [BMI] 24.0-24.9, adult; D63.1 Anemia in chronic kidney disease
CPT/HCPCS: 36600; 71045; 71250; 80053; 82805; 82962; 83880; 84100; 84484; 85025; 85379; 85610; 85730; 87340; 87426; 87804; 93005; 93970; 97162; 97530; 99291; J0610; J0696; J0885; J1644; J1815; J2270; J2930; J7030; J7050; 36415-L1; 36415-TC; J7512; U0003; Z7610